=== PATIENT | male | born 1950 | race Caucasian/White ===

== ENCOUNTER 2021-04-27 12:06 | Emergency (ER) | payer OTHER, MEDICARE ==
[~2021-04-27] VITALS: Ht 182.9 cm; Wt 80.9 kg
[2021-04-27 12:11] VITALS: BP 160/70
== END 2021-04-27 15:39 | disposition home or self-care (01) ==
LOC: ER 12:07
DX: M25.572 Pain in left ankle and joints of left foot (principal); F17.200 Nicotine dependence, unspecified, uncomplicated; Z88.0 Allergy status to penicillin; M25.472 Effusion, left ankle; I10 Essential (primary) hypertension
CPT/HCPCS: 29515; 99283

== ENCOUNTER 2023-12-21 22:58 | Emergency (ER) | payer OTHER, MEDICARE ==
[~2023-12-21] VITALS: Ht 182.9 cm; Wt 75.0 kg
[2023-12-21] MEDS: normal saline 1000ML IV soln IVB ONE (23:45)
[2023-12-21] MEDS: meclizine 12.5mg tablet PO ONE (23:45)
[2023-12-22 00:10] LABS: PROTHROMBIN TIME 10.9 SECONDS (9.0-12.0)
[2023-12-22 00:17] LABS: BASOPHILS # (AUTO) 0.1 X10'3 (0-0.2); BASOPHILS % (AUTO) 0.8 % (0-1); EOSINOPHILS # (AUTO) 0.2 X10'3 (0-0.9); EOSINOPHILS % (AUTO) 2.2 % (0-6); HEMATOCRIT 43.6 % (42.0-52.0); HEMOGLOBIN 14.8 g/dl (14.0-17.9); LYMPHOCYTES # (AUTO) 1.9 X10'3 (1.1-4.8); LYMPHOCYTES % (AUTO) 20.2 % (21-51); MEAN CORPUSCULAR HEMOGLOBIN 33.1 PG (27.0-31.0); MEAN CORPUSCULAR VOLUME 97.4 FL (78-98); MEAN PLATELET VOLUME 7.2 FL (7.4-10.4); MONOCYTES # (AUTO) 0.8 X10'3 (0-0.9); MONOCYTES % (AUTO) 8.2 % (2-12); NEUTROPHILS # (AUTO) 6.6 X10'3 (1.8-7.7); NEUTROPHILS % (AUTO) 68.6 % (42-75); PLATELET COUNT 220 X10'3 (140-440); RED BLOOD COUNT 4.48 X10'6 (4.70-6.10); WHITE BLOOD COUNT 9.6 X10'3 (4.5-11.0)
[2023-12-22 00:18] LABS: ALBUMIN 3.3 G/DL (3.4-5.0); ANION GAP 11 (8-16); BLOOD UREA NITROGEN 19 MG/DL (7-18); BUN/CREATININE RATIO 22.1 (10.0-20.0); CALCIUM 8.9 MG/DL (8.5-10.1); CHLORIDE 105 MMOL/L (99-107); CREATININE 0.86 MG/DL (0.60-1.10); GLUCOSE 121 MG/DL (70-104); POTASSIUM 3.7 MMOL/L (3.5-5.1); SODIUM 140 MMOL/L (135-145); TOTAL CARBON DIOXIDE 24.5 MMOL/L (24-32); eCRCL 79 ML/MIN; eGFR 87 ML/MIN
[2023-12-22 00:39] VITALS: O2SAT 97
[2023-12-22 01:47] VITALS: BP 163/61; PULSE 59; RESP 19
[2023-12-22] MEDS ORDERED: MECL-302 PO (02:10)
[2023-12-22] MEDS ORDERED: ONDA4TAB12 PO (02:10)
[2023-12-22 02:21] VITALS: TEMP 98.2
== END 2023-12-22 02:23 | disposition home or self-care (01) ==
LOC: ER 22:58
DX: R42 Dizziness and giddiness (principal); R79.1 Abnormal coagulation profile; Z88.0 Allergy status to penicillin; Z79.899 Other long term (current) drug therapy
CPT/HCPCS: 36415; 70450; 71045; 80048; 85025; 85610; 93005; 96360; 99285; J7030; J8597